=== PATIENT | female | born 2000 | race Caucasian/White ===

== ENCOUNTER 2018-07-21 16:56 | Outpatient (CLI) | payer OTHER, MEDICAID ==
[~2018-07-21] VITALS: Ht 172.7 cm; Wt 98.3 kg
[2018-07-21 17:28] VITALS: BP 132/69
[2018-07-21 17:33] LABS: MICROSCOPIC NOT IND
[2018-07-21 17:47] LABS: BASOPHILS # (AUTO) 0.05 x10^3/uL (0-0.3); BASOPHILS % (AUTO) 0 % (0-1); EOSINOPHILS # (AUTO) 0.16 x10^3/uL (0-0.8); EOSINOPHILS % (AUTO) 1 % (1-7); LYMPHOCYTES # (AUTO) 1.83 x10^3/uL (1-6.1); LYMPHOCYTES % (AUTO) 14 % (22-44); MD NO; MEAN CORPUSCULAR HEMOGLOBIN 31.3 pg (27.0-34.8); MEAN CORPUSCULAR HGB CONC 33.8 g/dL (32.4-35.8); MEAN CORPUSCULAR VOLUME 92.7 fL (80-100); MONOCYTES # (AUTO) 1.24 x10^3/uL (0-1.4); MONOCYTES % (AUTO) 10 % (2-9); NEUTROPHILS # (AUTO) 9.57 x10^3/uL (1.8-8.0); NEUTROPHILS % (AUTO) 75 % (42-75); PLATELET COUNT 242 x10^3/uL (130-400); RED BLOOD COUNT 3.84 x10^6/uL (3.82-5.3); RED CELL DISTRIBUTION WIDTH 13.8 % (9.6-15.2)
[2018-07-21 17:58] LABS: ALBUMIN 2.8 g/dL (3.4-5.0); ANION GAP 8 mmol/L (5-15); CALCIUM 8.5 mg/dL (8.5-10.1); CHLORIDE 108 mmol/L (98-107)
[2018-07-21 18:01] LABS: ALANINE AMINOTRANSFERASE 21 U/L (12-78); ALKALINE PHOSPHATASE 125 U/L (45-117); BILIRUBIN,TOTAL 0.4 mg/dL (0.2-1.0); TOTAL PROTEIN 6.5 g/dL (6.4-8.2)
== END 2018-07-21 18:50 | disposition home or self-care (01) ==
LOC: LDOP 16:56
PROVIDERS: ATTEND Obstetrics & Gynecology
DX: O99.413 Diseases of the circulatory system complicating pregnancy, third trimester (principal); R03.0 Elevated blood-pressure reading, without diagnosis of hypertension; Z3A.37 37 weeks gestation of pregnancy
CPT/HCPCS: 36415; 59025; 80053; 81003; 82570; 83615; 84156; 84550; 85025; 99211; G0463

== ENCOUNTER 2018-08-06 11:58 | Inpatient (IN) | payer OTHER, MEDICAID ==
[~2018-08-06] VITALS: Ht 172.7 cm; Wt 118.2 kg
[~2018-08-06 11:58] MED LIST: CARBOPROST TROMETHAMINE 250 MCG/ML, 1ML IM ONE
[2018-08-06 12:15] VITALS: BP 131/69
[2018-08-06] MEDS ORDERED: ONDANSETRON ODT 4 MG PO ONE (13:30)
[2018-08-06] MEDS ORDERED: HYDROcodone/APAP 10/325 MG TABLET PO PRN (13:30)
[2018-08-06] MEDS ORDERED: HYDROcodone/APAP 10/325 MG TABLET ONE (13:38)
[2018-08-06] MEDS ORDERED: ONDANSETRON ODT 4 MG ONE (13:39)
[2018-08-06] MEDS: LACTATED RINGERS 1,000 ML IV SCH ×3 (15:18→19:30)
[2018-08-06] MEDS ORDERED: OXYTOCIN 30U/ 0.9% NaCL 500ML 500 ML IV ONE (16:18)
[2018-08-06] MEDS ORDERED: LACTATED RINGERS 1,000 ML IV SCH ×2 (16:18→17:59)
[2018-08-06] MEDS ORDERED: D5%-LACTATED RINGERS 1,000 ML IV SCH (16:18)
[2018-08-06] MEDS ORDERED: FENTANYL/BUPIV./NS/PF 250 ML EPIDCONT SCH ×2 (16:20→17:59)
[2018-08-06] MEDS ORDERED: FENTANYL PF 100 MCG/2ML IV PRN (16:30)
[2018-08-06] MEDS ORDERED: ONDANSETRON 2MG/ML, 2ML IVPush PRN (16:30)
[2018-08-06] MEDS ORDERED: CALCIUM CARBONATE 500 MG TAB.CHEW PO PRN (16:30)
[2018-08-06] MEDS ORDERED: TERBUTALINE 1 MG/ML, 1ML IVPush PRN (16:30)
[2018-08-06 16:56] LABS: MEAN CORPUSCULAR HEMOGLOBIN 31.3 pg (27.0-34.8); MEAN CORPUSCULAR HGB CONC 34.1 g/dL (32.4-35.8); MEAN CORPUSCULAR VOLUME 91.9 fL (80-100); MEAN PLATELET VOLUME 7.8 fL (7.4-10.4); PLATELET COUNT 248 x10^3/uL (130-400); RED BLOOD COUNT 4.09 x10^6/uL (3.82-5.3); RED CELL DISTRIBUTION WIDTH 13.8 % (9.6-15.2)
[2018-08-06 17:25] LABS: BASOPHILS # (AUTO) 0.01 x10^3/uL (0-0.3); BASOPHILS % (AUTO) 0 % (0-1); EOSINOPHILS # (AUTO) 0.01 x10^3/uL (0-0.8); EOSINOPHILS % (AUTO) 0 % (1-7); LYMPHOCYTES # (AUTO) 1.55 x10^3/uL (1-6.1); LYMPHOCYTES % (AUTO) 8 % (22-44); MD SCAN; MONOCYTES # (AUTO) 0.92 x10^3/uL (0-1.4); MONOCYTES % (AUTO) 5 % (2-9); NEUTROPHILS # (AUTO) 16.42 x10^3/uL (1.8-8.0); NEUTROPHILS % (AUTO) 87 % (42-75)
[2018-08-06] MEDS ORDERED: FENTANYL PF 100 MCG/2ML ONE ×3 (17:36→21:22)
[2018-08-06] MEDS: FENTANYL PF 100 MCG/2ML IVPush PRN ×3 (17:38→21:30)
[2018-08-06] MEDS ORDERED: PREN-3 PO (17:52)
[2018-08-06] MEDS ORDERED: EPHEDRINE 50 MG/ML, 1ML IVPush PRN (18:00)
[2018-08-06] MEDS ORDERED: FENTANYL PF 500 MCG, BUPIVACAINE/PF 0.5%, 30ML 62.5 ML in SODIUM CHLORIDE 0.9% 177.5 ML EPIDCONT SCH (18:00)
[2018-08-06] MEDS ORDERED: NALOXONE 0.4 MG/ML, 1ML IVPush PRN (18:00)
[2018-08-06] MEDS ORDERED: LACTATED RINGERS 1,000 ML IVBOLUS PRN (18:00)
[2018-08-06] MEDS ORDERED: BUPIVACAINE 0.25% ONE (18:10)
[2018-08-06 19:30] VITALS: BP 131/71
[2018-08-06] MEDS ORDERED: LIDOCAINE 1%, 20ML ONE (21:11)
[2018-08-06] MEDS ORDERED: OXYTOCIN 30U/ 0.9% NaCL 500ML 500 ML ONE ×3 (21:12→22:24)
[2018-08-06] MEDS ORDERED: MISOPROSTOL 200 MCG TABLET ONE (21:12)
[2018-08-06] MEDS ORDERED: METHYLERGONOVINE 0.2 MG/ML IM PRN (22:00)
[2018-08-06] MEDS: OXYTOCIN 30U/ 0.9% NaCL 500ML 500 ML IV SCH (22:42)
[2018-08-06] MEDS ORDERED: IBUPROFEN 600 MG TABLET ONE (22:45)
[2018-08-06] MEDS: IBUPROFEN 600 MG TABLET PO PRN (22:48)
[2018-08-06] MEDS ORDERED: MISOPROSTOL 200 MCG TABLET PR PRN (23:00)
[2018-08-06] MEDS ORDERED: ACETAMINOPHEN 325 MG TABLET PO PRN ×2 (23:00)
[2018-08-07] VITALS: BP 121/77
[2018-08-07] MEDS ORDERED: MISOPROSTOL 200 MCG TABLET PR PRN (00:30)
[2018-08-07] MEDS: LACTATED RINGERS 1,000 ML IV SCH ×3 (00:30→16:30)
[2018-08-07] MEDS ORDERED: CARBOPROST TROMETHAMINE 250 MCG/ML, 1ML IM PRN (00:30)
[2018-08-07] MEDS: OXYcodone/APAP 5/325MG TABLET PO PRN ×5 (01:49→22:00)
[2018-08-07 04:50] VITALS: BP 120/73
[2018-08-07] MEDS: IBUPROFEN 600 MG TABLET PO PRN ×3 (05:12→20:27)
[2018-08-07 06:29] LABS: MEAN CORPUSCULAR HEMOGLOBIN 31.6 pg (27.0-34.8); MEAN CORPUSCULAR HGB CONC 34.2 g/dL (32.4-35.8); MEAN CORPUSCULAR VOLUME 92.6 fL (80-100); MEAN PLATELET VOLUME 7.4 fL (7.4-10.4); PLATELET COUNT 201 x10^3/uL (130-400); RED BLOOD COUNT 3.14 x10^6/uL (3.82-5.3); RED CELL DISTRIBUTION WIDTH 13.6 % (9.6-15.2)
[2018-08-07 06:45] LABS: MD YES
[2018-08-07 07:15] VITALS: BP 99/64
[2018-08-07 08:26] LABS: <PLATELET ESTIMATE> ADEQUATE; <PLT MORPHOLOGY> NORMAL PLT MORPH; <RBC MORPHOLOGY> NORMAL; LYMPH#(MANUAL) 2.87 x10^3/uL (1-6.1); LYMPHS% (MANUAL) 14 % (22-44); MONOS#(MANUAL) 0.41 x10^3/uL (0.3-2.7); MONOS% (MANUAL) 2 % (2-9); SEG#(MANUAL) 17.22 x10^3/uL (1.8-8); SEGS% (MANUAL) 84 % (42-75)
[2018-08-07] MEDS: OXYTOCIN 30U/ 0.9% NaCL 500ML 500 ML IV SCH ×2 (08:37→18:37)
[2018-08-07] MEDS: PRENATAL VIT/IRON/FA 1 EACH TABLET PO SCH (10:47)
[2018-08-07] MEDS: DOCUSATE 100 MG CAPSULE PO PRN ×2 (10:47→20:26)
[2018-08-07 12:00] VITALS: BP 119/77
[2018-08-07 16:20] VITALS: BP 114/71
[2018-08-07 20:15] VITALS: BP 124/79
[2018-08-08] MEDS: LACTATED RINGERS 1,000 ML IV SCH ×2 (00:30→08:30)
[2018-08-08] MEDS: IBUPROFEN 600 MG TABLET PO PRN ×2 (02:08→08:04)
[2018-08-08] MEDS: OXYcodone/APAP 5/325MG TABLET PO PRN ×3 (02:08→10:31)
[2018-08-08 02:14] VITALS: BP 106/59
[2018-08-08] MEDS: OXYTOCIN 30U/ 0.9% NaCL 500ML 500 ML IV SCH (04:37)
[2018-08-08 07:35] VITALS: BP 118/75
[2018-08-08] MEDS: PRENATAL VIT/IRON/FA 1 EACH TABLET PO SCH (08:04)
[2018-08-08] MEDS: DOCUSATE 100 MG CAPSULE PO PRN (08:04)
[2018-08-08] MEDS ORDERED: IBUP-1222 PO (11:38)
[2018-08-08] MEDS ORDERED: OXYC-302 PO (11:39)
[2018-08-08] MEDS ORDERED: DOCU-131 PO (11:39)
== END 2018-08-08 12:35 | disposition home or self-care (01) | DRG 806 ==
LOC: LDOP 11:58 → LDIP 16:33 → 2NW 23:34
PROVIDERS: ADMIT Obstetrics & Gynecology; ATTEND Obstetrics & Gynecology
PROC: 0KQM0ZZ Repair Perineum Muscle, Open Approach (ICD-10-PCS; principal; 2018-08-06)
PROC: 10E0XZZ Delivery of Products of Conception, External Approach (ICD-10-PCS; 2018-08-06)
PROC: 3E033VJ Introduction of Other Hormone into Peripheral Vein, Percutaneous Approach (ICD-10-PCS; 2018-08-06)
DX: O99.344 Other mental disorders complicating childbirth (principal); O72.1 Other immediate postpartum hemorrhage; Z37.0 Single live birth; F43.10 Post-traumatic stress disorder, unspecified; O70.1 Second degree perineal laceration during delivery; Z3A.39 39 weeks gestation of pregnancy; Z80.3 Family history of malignant neoplasm of breast; Z82.49 Family history of ischemic heart disease and other diseases of the circulatory system; F32.9 Major depressive disorder, single episode, unspecified
CPT/HCPCS: 36415; 76815; 85025; 86850; 86900; G0378; J3010; Q0162; J2210; J2590; J7120